=== PATIENT | female | born 2000 | race Caucasian/White ===

== ENCOUNTER 2018-04-18 18:12 | Emergency (ER) | payer OTHER ==
--- NOTE | 2018-04-18 20:01 | ER Document Report ---
ED Medical Screen (RME) - General Chief Complaint: Abdominal Pain Stated Complaint: LOWER ABDOMINAL PAIN Time Seen by Provider: 04/18/18 19:48 Mode of Arrival: Ambulatory Information source: Patient Notes: 17-year-old female presents emergency department with 1 day history of sharp and stabbing lower abdominal pain. Patient states that the pain is in the right lower quadrant, suprapubic area, left lower quadrant. She denies any radiation of the pain. She denies any alleviating or exacerbating factors. She denies any nausea, vomiting, diarrhea, constipation, dysuria, vaginal bleeding, vaginal discharge. Patient states that her last menstrual period was in November. Patient states that she has followed up with an [employer] for her irregular menstrual cycles. Patient states that she is currently on control. I have greeted and performed a rapid initial assessment of this patient. A comprehensive ED assessment and evaluation of the patient, analysis of test results and completion of the medical decision making process will be conducted by additional ED providers. PHYSICAL EXAMINATION: GENERAL: Well-appearing, well-nourished and in no acute distress. HEAD: Atraumatic, normocephalic. EYES: Pupils equal round extraocular movements intact, conjunctiva are normal. ENT: Nares patent NECK: Normal range of motion LUNGS: No respiratory distress Musculoskeletal: Normal range of motion Abdomen: Lower abdominal tenderness to palpation. Normoactive bowel sounds. NEUROLOGICAL: Normal speech, normal gait. PSYCH: Normal mood, normal affect. SKIN: Warm, Dry, normal turgor, no rashes or lesions noted. Past Medical History Renal/ Medical History: Denies: Hx Peritoneal Dialysis Physical Exam - Vital signs Vitals: Temp Pulse Resp BP Pulse Ox 98.0 F 89 15 140/68 H 100 04/18/18 18:22 04/18/18 18:22 04/18/18 18:22 04/18/18 18:22 04/18/18 18:22 Course - Vital Signs Vital signs: Temp Pulse Resp BP Pulse Ox 98.0 F 89 15 140/68 H 100 04/18/18 18:22 04/18/18 18:22 04/18/18 18:22 04/18/18 18:22 04/18/18 18:22
[2018-04-18 20:25] LABS: ABSOLUTE BASOPHILS # (AUTO) 0.1 10^3/uL (0.0-0.2); ABSOLUTE EOSINOPHILS # (AUTO) 0.3 10^3/uL (0.0-0.6); ABSOLUTE LYMPHOCYTES (AUTO) 2.8 10^3/uL (0.5-4.7); ABSOLUTE MONOCYTES (AUTO) 0.9 10^3/uL (0.1-1.4); ABSOLUTE NEUT (AUTO) 7.5 10^3/uL (1.7-8.2); BASOPHILS % (AUTO) 0.9 % (0-2); EOSINOPHILS % (AUTO) 2.2 % (0-6); HEMATOCRIT 41.7 % (36.0-47.0); HEMOGLOBIN 14.1 g/dL (12.0-15.5); LYMPHOCYTES % (AUTO) 24.2 % (13-45); MEAN CORPUSCULAR HEMOGLOBIN 29.1 pg (27.0-33.4); MEAN CORPUSCULAR HGB CONC 33.9 g/dL (32.0-36.0); MEAN CORPUSCULAR VOLUME 86 fl (80-97); PLATELET COUNT 307 10^3/uL (150-450); RED BLOOD COUNT 4.85 10^6/uL (3.72-5.28); SEGMENTED NEUTROPHILS % (AUTO) 64.7 % (42-78); TOTAL CELLS COUNTED % (AUTO) 100 %; WHITE BLOOD COUNT 11.7 10^3/uL (4.0-10.5)
[2018-04-18 20:26] LABS: APPEARANCE,URINE SLIGHTLY-CLOUDY; BILIRUBIN,URINE NEGATIVE (NEGATIVE); COLOR,URINE YELLOW; GLUCOSE, URINE NEGATIVE (NEGATIVE); KETONES,URINE NEGATIVE (NEGATIVE); LEUKOCYTE ESTERASE,URINE NEGATIVE (NEGATIVE); NITRITE,URINE NEGATIVE (NEGATIVE); PROTEIN,URINE NEGATIVE (NEGATIVE); URINE SPECIFIC GRAVITY 1.015; UROBILINOGEN,URINE NEGATIVE mg/dL (<2.0)
[2018-04-18 20:35] LABS: ALANINE AMINOTRANSFERASE 32 U/L (5-35); ALBUMIN 4.8 g/dL (3.7-5.6); ALKALINE PHOSPHATASE 92 U/L (50-135); ANION GAP 16 (5-19); ASPARTATE AMINO TRANSFERASE 18 U/L (5-30); BILIRUBIN,DIRECT 0.4 mg/dL (0.0-0.4); BILIRUBIN,TOTAL 0.4 mg/dL (0.2-1.3); BLOOD UREA NITROGEN 11 mg/dL (7-20); CALCIUM 9.9 mg/dL (8.4-10.2); CARBON DIOXIDE 26 mmol/L (22-30); CHLORIDE 101 mmol/L (98-107); GLUCOSE 82 mg/dL (75-110); LIPASE 63.3 U/L (23-300); POTASSIUM 3.9 mmol/L (3.6-5.0); SODIUM 142.6 mmol/L (137-145); TOTAL PROTEIN 8.5 g/dL (6.3-8.2)
[2018-04-18] MEDS ORDERED: IBUPROFEN 600 MG TABLET PO ONE (21:46)
[2018-04-18] MEDS ORDERED: ACETAMINOPHEN 325 MG TABLET PO ONE (21:46)
--- NOTE | 2018-04-18 21:51 | ER Document Report ---
ED General - General Chief Complaint: Abdominal Pain Stated Complaint: LOWER ABDOMINAL PAIN Time Seen by Provider: 04/18/18 19:48 Mode of Arrival: Ambulatory Notes: Patient is a 17-year-old female without chronic medical problems, no prior abdominal surgical history who presents with 48 hours of lower abdominal pain. She describes this as a stabbing, constant pain with intermittent periods of intensification of the pain. Nothing seems to trigger the pain to worsen and it does start to improve on its own. She has not taken anything to try to treat the pain. She denies any history of similar symptoms in the past. She denies any vaginal bleeding, vaginal discharge, dysuria, fever or constitutional symptoms. She does take oral control pills. She has not seen her primary doctor regarding today's concerns. Her last menstrual period was in November 2017. Past Medical History - General Information source: Patient - Social History Smoking Status: Never Smoker Frequency of alcohol use: None Drug Abuse: None Lives with: Spouse/Significant other Family History: Reviewed & Not Pertinent Patient has suicidal ideation: No Patient has homicidal ideation: No Renal/ Medical History: Denies: Hx Peritoneal Dialysis Review of Systems - Review of Systems Notes: Constitutional: Negative for fever. HENT: Negative for sore throat. Eyes: Negative for visual changes. Cardiovascular: Negative for chest pain. Respiratory: Negative for shortness of breath. Gastrointestinal: Positive for lower abdominal pain Genitourinary: Negative for dysuria. Musculoskeletal: Negative for back pain. Skin: Negative for rash. Neurological: Negative for headaches, weakness or numbness. 10 point ROS negative except as marked above and in HPI. Physical Exam - Vital signs Vitals: Temp Pulse Resp BP Pulse Ox 98.0 F 89 15 140/68 H 100 04/18/18 18:22 04/18/18 18:22 04/18/18 18:22 04/18/18 18:22 04/18/18 18:22 Interpretation: Normal Notes: PHYSICAL EXAMINATION: GENERAL: Well-appearing, well-nourished and in no acute distress. HEAD: Atraumatic, normocephalic. EYES: Pupils equal round and reactive to light, extraocular movements intact, sclera anicteric, conjunctiva are normal. ENT: nares patent, oropharynx clear without exudates. Moist mucous membranes. NECK: Normal range of motion, supple without lymphadenopathy LUNGS: Breath sounds clear to auscultation bilaterally and equal. No wheezes rales or rhonchi. HEART: Regular rate and rhythm without murmurs ABDOMEN: Soft, bilateral adnexal and suprapubic tenderness but no other localized areas of tenderness, normoactive bowel sounds. No guarding, no rebound. No masses appreciated. EXTREMITIES: Normal range of motion, no pitting or edema. No cyanosis. NEUROLOGICAL: No focal neurological deficits. Moves all extremities spontaneously and on command. PSYCH: Normal mood, normal affect. SKIN: Warm, Dry, normal turgor, no rashes or lesions noted. Course - Re-evaluation Re-evalutation: 04/18/18 21:46 Patient presents with 2 days of diffuse lower abdominal pain most localized over the bilateral adnexa. Abdominal exam is benign with tenderness over the bilateral adnexa but no tenderness over the right lower quadrant or any other area of the abdomen vitals are normal at the time of arrival. Laboratories are unremarkable without evidence of cystitis, , or leukocytosis. Patient is overall very well in appearance. Based on clinical history and examination I do not suspect an acute appendicitis, tubo-ovarian abscess, related pathology, pelvic inflammatory disease, mesenteric ischemia, or pyelonephritis. Clinical history appears to be most consistent with likely ovarian cysts versus ovulation pain. I discussed with the patient that she needs to follow- up closely with her [employer] ICU RN and she is in agreement. She has declined a transvaginal ultrasound today. At this time will discharge with return precautions and follow-up recommendations. Verbal discharge instructions given a the bedside and opportunity for questions given. Medication warnings reviewed. Patient is in agreement with this plan and has verbalized understanding of return precautions and the need for primary care follow-up in the next 24-72 hours. 04/18/18 21:49 - Vital Signs Vital signs: Temp Pulse Resp BP Pulse Ox 98.6 F 66 14 120/63 100 04/18/18 22:07 04/18/18 22:07 04/18/18 22:07 04/18/18 22:07 04/18/18 22:07 - Laboratory Result Diagrams: 04/18/18 20:10 04/18/18 20:10 Laboratory results interpreted by me: 04/18/18 04/18/18 20:10 20:10 WBC 11.7 H Total Protein 8.5 H Discharge - Discharge Clinical Impression: Lower abdominal pain, Irregular menstrual cycle Condition: Good Disposition: HOME, SELF-CARE Additional Instructions: You have been seen in the Emergency Department (ED) for abdominal pain. Your evaluation did not identify a clear cause of your symptoms but was generally reassuring. You likely have ovarian cysts or ovulation pain as the source of your discomfort. Please follow up with your doctor as soon as possible regarding today's emergent visit and the symptoms that are bothering you. Return to the ED if your abdominal pain worsens or fails to improve, you develop heavy vaginal discharge, heavy vaginal bleeding, fever of greater than 100.4F, or any other symptoms that are concerning to you. For your pain: Take ibuprofen 600 mg and acetaminophen 1000 mg every 6 hours together as needed for pain.
[2018-04-18 22:09] VITALS: BP 120/63
== END 2018-04-18 22:09 | disposition home or self-care (01) ==
LOC: ER 18:12
DX: N92.6 Irregular menstruation, unspecified (principal); R10.30 Lower abdominal pain, unspecified; Z79.3 Long term (current) use of hormonal contraceptives
CPT/HCPCS: 36415; 80053; 81001; 81025; 83690; 85025; 99284